=== PATIENT | male | born 1965 | race Caucasian/White ===

== ENCOUNTER 2019-06-08 18:18 | Emergency (ER) | payer BC ==
[~2019-06-08] VITALS: Ht 182.9 cm; Wt 113.0 kg
[2019-06-08 18:41] LABS: BASOPHILS # (AUTO) 0.1 X10'3 (0-0.2); BASOPHILS % (AUTO) 0.6 % (0-1); EOSINOPHILS # (AUTO) 0.3 X10'3 (0-0.9); EOSINOPHILS % (AUTO) 2.6 % (0-6); HEMATOCRIT 51.7 % (42.0-52.0); HEMOGLOBIN 17.7 g/dl (14.0-17.9); LYMPHOCYTES # (AUTO) 3.1 X10'3 (1.1-4.8); LYMPHOCYTES % (AUTO) 30.5 % (21-51); MEAN CORPUSCULAR HEMOGLOBIN 30.5 PG (27.0-31.0); MEAN CORPUSCULAR HGB CONC 34.2 g/dL (33.0-36.5); MEAN PLATELET VOLUME 10.6 FL (7.4-10.4); MONOCYTES # (AUTO) 0.9 X10'3 (0-0.9); MONOCYTES % (AUTO) 8.8 % (2-12); NEUTROPHILS # (AUTO) 5.9 X10'3 (1.8-7.7); NEUTROPHILS % (AUTO) 57.5 % (42-75); PLATELET COUNT 173 X10'3 (140-440); RED BLOOD COUNT 5.81 X10'6 (4.70-6.10); RED CELL DISTRIBUTION WIDTH 14.3 % (11.5-14.5); WHITE BLOOD COUNT 10.2 X10'3 (4.5-11.0)
[2019-06-08] MEDS ORDERED: normal saline 1000ML IV soln IVB ONE ×2 (18:45→19:20)
[2019-06-08] MEDS ORDERED: metoprolol tartrate 50mg tablet PO ONE (18:45)
[2019-06-08] MEDS ORDERED: LORazepam 2 mg/ml vial IV ONE (18:45)
[2019-06-08 18:51] LABS: PARTIAL THROMBOPLASTIN TIME 25 SECONDS (22-32)
[2019-06-08 18:53] LABS: ALANINE AMINOTRANSFERASE 39 U/L (12-78); ALKALINE PHOSPHATASE 65 IU/L (46-116); ANION GAP 11 (8-16); ASPARTATE AMINO TRANSFERASE 22 U/L (10-37); BILIRUBIN,TOTAL 0.3 MG/DL (0.1-1.0); BLOOD UREA NITROGEN 27 MG/DL (7-18); BUN/CREATININE RATIO 20.9 (5.4-32.0); CALCIUM 9.3 MG/DL (8.5-10.1); CHLORIDE 105 MMOL/L (99-107); CREATININE 1.29 MG/DL (0.60-1.10); GLUCOSE 172 MG/DL (70-104); POTASSIUM 4.3 MMOL/L (3.5-5.1); SODIUM 141 MMOL/L (135-145); TOTAL CARBON DIOXIDE 25.3 MMOL/L (24-32); eGFR 58 ML/MIN
[2019-06-08 19:01] LABS: D-DIMER < 0.19 MG/L FEU (0-0.50)
[2019-06-08 20:43] VITALS: BP 124/77
== END 2019-06-08 20:43 | disposition home or self-care (01) ==
LOC: ER 18:19
DX: R07.89 Other chest pain (principal); E86.0 Dehydration; I10 Essential (primary) hypertension; E11.9 Type 2 diabetes mellitus without complications
CPT/HCPCS: 71045; 80053; 83880; 84484; 85025; 85379; 85610; 85730; 93005; 96361; 96374; 99284; J2060; J7030; 96375

== ENCOUNTER 2020-02-22 07:02 | Day surgery (SDC) | payer BC ==
[2020-02-21 16:06] LABS: BASOPHILS # (AUTO) 0.1 X10'3 (0-0.2); BASOPHILS % (AUTO) 1.1 % (0-1); EOSINOPHILS # (AUTO) 0.3 X10'3 (0-0.9); EOSINOPHILS % (AUTO) 3.6 % (0-6); HEMATOCRIT 49.5 % (42.0-52.0); HEMOGLOBIN 16.5 g/dl (14.0-17.9); LYMPHOCYTES # (AUTO) 2.5 X10'3 (1.1-4.8); LYMPHOCYTES % (AUTO) 28.6 % (21-51); MEAN CORPUSCULAR HEMOGLOBIN 29.7 PG (27.0-31.0); MEAN CORPUSCULAR HGB CONC 33.4 g/dL (33.0-36.5); MEAN CORPUSCULAR VOLUME 89.1 FL (78-98); MEAN PLATELET VOLUME 11.2 FL (7.4-10.4); MONOCYTES # (AUTO) 0.7 X10'3 (0-0.9); MONOCYTES % (AUTO) 7.9 % (2-12); NEUTROPHILS # (AUTO) 5.2 X10'3 (1.8-7.7); NEUTROPHILS % (AUTO) 58.8 % (42-75); PLATELET COUNT 165 X10'3 (140-440); RED BLOOD COUNT 5.56 X10'6 (4.70-6.10); RED CELL DISTRIBUTION WIDTH 13.8 % (11.5-14.5); WHITE BLOOD COUNT 8.8 X10'3 (4.5-11.0)
[2020-02-21 16:18] LABS: ALBUMIN 3.6 G/DL (3.4-5.0); ANION GAP 9 (8-16); BLOOD UREA NITROGEN 22 MG/DL (7-18); BUN/CREATININE RATIO 17.7 (5.4-32.0); CALCIUM 8.4 MG/DL (8.5-10.1); CHLORIDE 104 MMOL/L (99-107); CREATININE 1.24 MG/DL (0.60-1.10); GLUCOSE 254 MG/DL (70-104); PARTIAL THROMBOPLASTIN TIME 25 SECONDS (22-32); POTASSIUM 4.3 MMOL/L (3.5-5.1); SODIUM 137 MMOL/L (135-145); TOTAL CARBON DIOXIDE 23.7 MMOL/L (24-32); eGFR 61 ML/MIN
[~2020-02-22] VITALS: Ht 180.3 cm; Wt 118.5 kg
[2020-02-22] VITALS (11 sets, daily range): BP systolic 116–136; BP diastolic 60–79
[2020-02-22] MEDS ORDERED: diphenhydrAMINE 25mg capsule PO PRN (07:15)
[2020-02-22] MEDS ORDERED: normal saline 1,000 ML IV SCH (07:15)
[2020-02-22] MEDS ORDERED: acetylcysteine 200 MG/ml 4ml vial PO PRN (07:20)
[2020-02-22] MEDS ORDERED: ATOR40TA72 PO (08:26)
[2020-02-22] MEDS ORDERED: LISI10TA4 PO (08:26)
[2020-02-22] MEDS ORDERED: EMPA25TA PEG (08:26)
[2020-02-22] MEDS ORDERED: GLYB5TAB7 PO (08:26)
[2020-02-22] MEDS ORDERED: LEVO100T PO (08:26)
[2020-02-22] MEDS ORDERED: METF-438 PO (08:26)
[2020-02-22] MEDS ORDERED: FLO0.4C PO (08:26)
[2020-02-22] MEDS ORDERED: CARV6.253 PO (08:26)
[2020-02-22] MEDS ORDERED: sodium bicarbonate (8.4%) inj. 150 ML in dextrose 5%-water 1,000 ML IV ONE (08:30)
[2020-02-22] MEDS ORDERED: LIDOcaine/PRILOcaine 5gm cream TP ONE (08:35)
[2020-02-22] MEDS ORDERED: LORazepam 0.5 MG tablet PO PRN (08:45)
[2020-02-22] MEDS ORDERED: ASPI-1265 PO (09:17)
[2020-02-22] MEDS ORDERED: iohexol 350 MG/ML 50ML vial IV ONE (09:51)
[2020-02-22] MEDS ORDERED: midazolam 2 mg/2 ml injection ONE (09:51)
[2020-02-22] MEDS ORDERED: fentaNYL/PF 50MCG/1 ML 2ML syringe ONE (09:51)
[2020-02-22] MEDS ORDERED: heparin 1,000unit/ml 10ml vial 10 ML ONE (09:51)
[2020-02-22] MEDS ORDERED: iohexol 350MG/ML 100ml bottle IV ONE (09:51)
[2020-02-22] MEDS ORDERED: LIDOcaine 1% (10mg/ml)w/preservative injection 20ml MDV ONE (09:51)
[2020-02-22] MEDS ORDERED: nitroGLYCERIN-Tridil 50MG/D5W 250 ML IV ONE (09:51)
[2020-02-22] MEDS ORDERED: verapamil 2.5 mg/ml inj IV ONE (09:51)
[2020-02-22] MEDS ORDERED: sodium bicarbonate (8.4%) inj. 150 MEQ in dextrose 5%-water 1,000 ML IV ONE (12:00)
== END 2020-02-22 17:00 | disposition home or self-care (01) ==
LOC: SSTAY O 07:02
PROVIDERS: ATTEND Internal Medicine Cardiovascular Disease
DX: R94.39 Abnormal result of other cardiovascular function study (principal); R06.02 Shortness of breath; I25.10 Atherosclerotic heart disease of native coronary artery without angina pectoris; E11.9 Type 2 diabetes mellitus without complications; I10 Essential (primary) hypertension; E78.49 Other hyperlipidemia; G47.30 Sleep apnea, unspecified; Z85.528 Personal history of other malignant neoplasm of kidney; Z90.5 Acquired absence of kidney; Z87.891 Personal history of nicotine dependence; Z79.899 Other long term (current) drug therapy
CPT/HCPCS: 80048; 82948; 85025; 85610; 85730; 93005; 93458; 99152; 99153; C1751; C1894; J1644; J2001; J2250; J3010; J7030; Q0163; Q9967; A4620; A5120; J3490

== ENCOUNTER 2022-07-29 09:03 | Emergency (ER) | payer BC ==
[~2022-07-29] VITALS: Ht 180.3 cm; Wt 113.0 kg
[~2022-07-29 09:03] MED LIST: ASPI-1265 PO; ATOR40TA72 PO; CARV6.253 PO; EMPA25TA PEG; FLO0.4C PO; GLYB5TAB7 PO; LEVO100T PO; LISI10TA27 PO; METF-438 PO
[2022-07-29 09:17] VITALS: BP 145/80
[2022-07-29] MEDS ORDERED: CEPH250T PO (09:59)
== END 2022-07-29 10:05 | disposition home or self-care (01) ==
LOC: ER 09:04
DX: S06.0XAA Concussion with loss of consciousness status unknown, initial encounter (principal); L03.811 Cellulitis of head [any part, except face]; I10 Essential (primary) hypertension; E11.9 Type 2 diabetes mellitus without complications; Z79.82 Long term (current) use of aspirin; Z79.84 Long term (current) use of oral hypoglycemic drugs; Z79.899 Other long term (current) drug therapy; W18.39XA Other fall on same level, initial encounter; Y93.89 Activity, other specified; Y92.89 Other specified places as the place of occurrence of the external cause; Y99.8 Other external cause status
CPT/HCPCS: 99284

== ENCOUNTER 2024-07-26 13:59 | Emergency (ER) | payer BC ==
[~2024-07-26] VITALS: Ht 180.3 cm; Wt 88.6 kg
[2024-07-26 15:22] LABS: BASOPHILS # (AUTO) 0.1 X10'3 (0-0.2); BASOPHILS % (AUTO) 0.9 % (0-1); EOSINOPHILS # (AUTO) 0.3 X10'3 (0-0.9); EOSINOPHILS % (AUTO) 3.7 % (0-6); HEMATOCRIT 48.2 % (42.0-52.0); HEMOGLOBIN 16.6 g/dl (14.0-17.9); LYMPHOCYTES # (AUTO) 2.1 X10'3 (1.1-4.8); LYMPHOCYTES % (AUTO) 27.7 % (21-51); MEAN CORPUSCULAR HEMOGLOBIN 30.9 PG (27.0-31.0); MEAN CORPUSCULAR HGB CONC 34.5 g/dL (33.0-36.5); MEAN CORPUSCULAR VOLUME 89.7 FL (78-98); MONOCYTES # (AUTO) 0.7 X10'3 (0-0.9); MONOCYTES % (AUTO) 9.1 % (2-12); NEUTROPHILS # (AUTO) 4.4 X10'3 (1.8-7.7); NEUTROPHILS % (AUTO) 58.6 % (42-75); PLATELET COUNT 164 X10'3 (140-440); RED BLOOD COUNT 5.37 X10'6 (4.70-6.10); RED CELL DISTRIBUTION WIDTH 13.6 % (11.5-14.5); WHITE BLOOD COUNT 7.4 X10'3 (4.5-11.0)
[2024-07-26 15:40] LABS: ALANINE AMINOTRANSFERASE 32 U/L (12-78); ALBUMIN 3.6 G/DL (3.4-5.0); ALKALINE PHOSPHATASE 97 IU/L (46-116); ANION GAP 10 (8-16); ASPARTATE AMINO TRANSFERASE 26 U/L (10-37); BILIRUBIN,TOTAL 0.5 MG/DL (0.1-1.0); BLOOD UREA NITROGEN 18 MG/DL (7-18); BUN/CREATININE RATIO 20.7 (10.0-20.0); CALCIUM 8.8 MG/DL (8.5-10.1); CHLORIDE 106 MMOL/L (99-107); CREATININE 0.87 MG/DL (0.60-1.10); GLUCOSE 172 MG/DL (70-104); POTASSIUM 4.1 MMOL/L (3.5-5.1); SODIUM 143 MMOL/L (135-145); TOTAL PROTEIN 7.1 G/DL (6.4-8.2); eCRCL 97 ML/MIN; eGFR 90 ML/MIN
[2024-07-26 15:51] LABS: PRO BRAIN NATRIURETIC PEPTIDE < 30 PG/ML (0-125)
[2024-07-26 15:57] LABS: LARGE PLATELETS MODERATE; PLATELET ESTIMATE NORMAL
[2024-07-26 18:14] VITALS: BP 132/78; PULSE 74; RESP 16; TEMP 98.1; O2SAT 97
== END 2024-07-26 18:15 | disposition home or self-care (01) ==
LOC: ER 13:59
DX: R07.89 Other chest pain (principal); I10 Essential (primary) hypertension; E11.9 Type 2 diabetes mellitus without complications; Z79.82 Long term (current) use of aspirin; Z79.899 Other long term (current) drug therapy
CPT/HCPCS: 36415; 71045; 80053; 83880; 84484; 85008; 85025; 93005; 99285